=== PATIENT | female | born 1940 | race African-American/Black ===

== ENCOUNTER 2024-04-26 10:52 | Inpatient (IN) | payer MEDICARE ==
[~2024-04-26] VITALS: Ht 315 cm; Wt 78.0 kg
[2024-04-26] MEDS: ONDANSETRON HCL 4MG/2ML INJ IV STA (11:52)
[2024-04-26] MEDS: MORPHINE SULFATE 4 MG/ML INJ (FOR IV/IM USE) IV STA (11:53)
[2024-04-26 12:00] LABS: BASOPHILS % 0.5 % (0.0-2.0); EOSINOPHILS % 2.8 % (0.0-5.0); HEMATOCRIT. 31.7 % (36.0-48.0); HEMOGLOBIN. 9.8 g/dL (12.0-16.0); LYMPHOCYTES % 14.6 % (20.0-50.0); MEAN CORPUSCULAR HEMOGLOBIN 27.3 pg (28.0-32.0); MEAN CORPUSCULAR HGB CONC 30.8 g/dL (31.0-37.0); MEAN CORPUSCULAR VOLUME 88.6 fL (81.0-99.0); MEAN PLATELET VOLUME 9.2 fl (7.4-10.4); MONOCYTES % 6.3 % (2.0-8.0); NEUTROPHILS % 75.8 % (40.0-76.0); PLATELET 152 x1000/uL (130-400); RED BLOOD CELL COUNT 3.58 mill/uL (4.2-5.4); RED CELL DISTRIBUTION WIDTH 16.7 % (11.6-14.6); WHITE BLOOD COUNT 10.4 x1000/uL (4.5-11.0)
[2024-04-26 12:10] LABS: CHLORIDE 111 mEq/L (98-107); POTASSIUM 4.3 mEq/L (3.5-5.1); SODIUM 142 mEq/L (136-145)
[2024-04-26 12:11] LABS: CALCIUM 8.8 mg/dL (8.7-10.4); CARBON DIOXIDE 23 mEq/L (21-32)
[2024-04-26 12:16] LABS: CREATININE 0.8 mg/dL (0.6-1.0); GLUCOSE 190 mg/dL (70-105); UREA NITROGEN BLOOD 24 mg/dL (9-23)
[2024-04-26 12:18] LABS: ALANINE AMINOTRANSFERASE 24 IU/L (10-49); ALBUMIN 3.4 g/dL (3.2-4.8); ASPARTATE AMINOTRANSFERASE 26 IU/L (<34); BILIRUBIN TOTAL 0.3 mg/dL (0.1-1.0); PROTEIN TOTAL 6.2 g/dL (6.0-8.3); TROPONIN I HIGH SENSITIVITY 6 ng/L (3.0-34)
[2024-04-26 12:23] LABS: PROTHROMBIN TIME 11.1 sec (9.6-11.0)
[2024-04-26 12:43] LABS: BILIRUBIN DIRECT < 0.1 mg/dL (<=3.0)
[2024-04-26 15:20] LABS: CLARITY URINE CLOUDY (CLEAR); COLOR URINE ORANGE (YELLOW); GLUCOSE URINE NEGATIVE (NEGATIVE); KETONES URINE NEGATIVE (NEGATIVE); LEUKOCYTE ESTERASE URINE TRACE (NEGATIVE); NITRITE URINE NEGATIVE (NEGATIVE); OCCULT BLOOD URINE 3+ (NEGATIVE); PROTEIN URINE 1+ (NEGATIVE); UROBILINOGEN URINE 0.2 E.U./dL (0.2-1.0)
[2024-04-26] MEDS: IOHEXOL-300 100 ML BOTTLE ONE (15:25)
[2024-04-26 16:00] VITALS: BP 84/55; PULSE 81; RESP 20; TEMP 36.6; O2SAT 80
[2024-04-26 16:13] LABS: BACTERIA URINE 1+; SQUAMOUS EPITHELIAL CELL URINE 2+ /lpf (RARE/1+); WBC URINE 0-2 /hpf (0-2)
[2024-04-26] MEDS ORDERED: ONDANSETRON HCL 4MG/2ML INJ IV PRN (17:30)
[2024-04-26 18:03] LABS: HEMATOCRIT 27.6 % (36.0-48.0); HEMOGLOBIN 8.6 g/dL (12.0-16.0)
[2024-04-26] MEDS: DEXT 5%/0.9% NACL 1,000 ML IV SCH (18:24)
[2024-04-26] MEDS ORDERED: PANTOPRAZOLE 80 MG in SODIUM CHLORIDE 0.9% 100 ML IV SCH (18:30)
[2024-04-26 19:28] LABS: TROPONIN I HIGH SENSITIVITY 8 ng/L (3.0-34)
[2024-04-26 20:00] VITALS: BP 85/60; PULSE 76; RESP 14; TEMP 36.4; O2SAT 96
[2024-04-27] VITALS (17 sets, daily range): BP systolic 88–126; BP diastolic 47–63; PULSE 75–103; RESP 16–18; TEMP 35.7–36.9; O2SAT 97–99
[2024-04-27 03:33] LABS: HEMATOCRIT 20.5 % (36.0-48.0)
[2024-04-27 03:34] LABS: HEMOGLOBIN 6.5 g/dL (12.0-16.0)
[2024-04-27] MEDS ORDERED: CHOL100046 PO (10:11)
[2024-04-27] MEDS ORDERED: ACET-2708 PO (10:11)
[2024-04-27] MEDS ORDERED: METO-539 PO (10:11)
[2024-04-27] MEDS ORDERED: LEVO75TA7 PO (10:11)
[2024-04-27] MEDS ORDERED: LOSA50TA41 PO (10:11)
[2024-04-27] MEDS ORDERED: CYCL5TAB3 PO (10:11)
[2024-04-27] MEDS ORDERED: APIX5TAB PO (10:11)
[2024-04-27] MEDS ORDERED: FURO20TA4 PO (10:11)
[2024-04-27] MEDS: PANTOPRAZOLE SODIUM 40 MG/VIAL IV SCH (10:54)
[2024-04-27 12:58] LABS: BASOPHILS % 0.2 % (0.0-2.0); EOSINOPHILS % 1.4 % (0.0-5.0); HEMATOCRIT. 26.6 % (36.0-48.0); HEMOGLOBIN. 8.6 g/dL (12.0-16.0); LYMPHOCYTES % 23.5 % (20.0-50.0); MEAN CORPUSCULAR HEMOGLOBIN 28.1 pg (28.0-32.0); MEAN CORPUSCULAR HGB CONC 32.2 g/dL (31.0-37.0); MEAN CORPUSCULAR VOLUME 87.3 fL (81.0-99.0); MEAN PLATELET VOLUME 9.6 fl (7.4-10.4); MONOCYTES % 12.2 % (2.0-8.0); NEUTROPHILS % 62.7 % (40.0-76.0); PLATELET 107 x1000/uL (130-400); RED BLOOD CELL COUNT 3.05 mill/uL (4.2-5.4); RED CELL DISTRIBUTION WIDTH 15.6 % (11.6-14.6); WHITE BLOOD COUNT 6.5 x1000/uL (4.5-11.0)
[2024-04-27 13:10] LABS: CHLORIDE 113 mEq/L (98-107); SODIUM 144 mEq/L (136-145)
[2024-04-27 13:11] LABS: CALCIUM 8.5 mg/dL (8.7-10.4); CARBON DIOXIDE 23 mEq/L (21-32)
[2024-04-27 13:20] LABS: T4 FREE 1.22 ng/dL (0.89-1.76); THYROID STIMULATING HORMONE 1.55 uIU/mL (0.55-4.78)
[2024-04-27 13:38] LABS: CREATININE 0.7 mg/dL (0.6-1.0); GLUCOSE 120 mg/dL (70-105); UREA NITROGEN BLOOD 19 mg/dL (9-23)
[2024-04-27 13:40] LABS: ALANINE AMINOTRANSFERASE 18 IU/L (10-49); ALBUMIN 3.1 g/dL (3.2-4.8); ASPARTATE AMINOTRANSFERASE 20 IU/L (<34); BILIRUBIN DIRECT 0.3 mg/dL (<=3.0); BILIRUBIN TOTAL 0.9 mg/dL (0.1-1.0); PROTEIN TOTAL 5.3 g/dL (6.0-8.3)
[2024-04-27 16:06] LABS: HEMATOCRIT 26.8 % (36.0-48.0); HEMOGLOBIN 8.7 g/dL (12.0-16.0)
[2024-04-28] VITALS: BP 112/62; PULSE 101; RESP 18; TEMP 36.3; O2SAT 98
[2024-04-28 01:39] LABS: HEMATOCRIT 23.1 % (36.0-48.0); HEMOGLOBIN 7.7 g/dL (12.0-16.0)
[2024-04-28 04:00] VITALS: BP 123/63; PULSE 81; RESP 18; TEMP 36.4; O2SAT 100
[2024-04-28 06:11] LABS: HEMOGLOBIN 7.6 g/dL (12.0-16.0)
[2024-04-28 08:00] VITALS: BP 128/78; PULSE 79; RESP 18; TEMP 36.3; O2SAT 100
[2024-04-28] MEDS: METOPROLOL TARTRATE 50MG TABLET PO SCH (08:28)
[2024-04-28] MEDS ORDERED: METOPROLOL TARTRATE 50MG TABLET PO SCH (09:00)
[2024-04-28 12:00] VITALS: BP 134/75; PULSE 75; RESP 18; TEMP 36.4; O2SAT 100
[2024-04-28 13:02] LABS: HEMATOCRIT 24.9 % (36.0-48.0)
[2024-04-28 16:00] VITALS: BP 128/73; PULSE 85; RESP 18; TEMP 36.6; O2SAT 100
[2024-04-28 20:00] VITALS: BP 153/82; PULSE 89; RESP 17; TEMP 36.8; O2SAT 100
[2024-04-28 20:12] LABS: HEMOGLOBIN 7.8 g/dL (12.0-16.0)
[2024-04-28 21:35] LABS: IRON 38 ug/dL (50-170)
[2024-04-28 21:38] LABS: TOTAL IRON BINDING CAPACITY 253 ug/dl (250-425)
[2024-04-28 21:41] LABS: FERRITIN 47 ng/mL (10-291); FOLIC ACID (FOLATE) SERUM > 20.00 ng/mL (>5.38)
[2024-04-28 21:42] LABS: VITAMIN B12 SERUM 546 pg/mL (211-911)
[2024-04-29] VITALS: BP 126/72; PULSE 72; RESP 18; TEMP 36.6; O2SAT 100
[2024-04-29 04:00] VITALS: BP 107/64; PULSE 75; RESP 16; TEMP 37.4; O2SAT 100
[2024-04-29 07:02] LABS: CHLORIDE 112 mEq/L (98-107); POTASSIUM 3.5 mEq/L (3.5-5.1); SODIUM 146 mEq/L (136-145)
[2024-04-29 07:03] LABS: CALCIUM 8.7 mg/dL (8.7-10.4); CARBON DIOXIDE 26 mEq/L (21-32)
[2024-04-29 07:08] LABS: CREATININE 0.6 mg/dL (0.6-1.0); GLUCOSE 127 mg/dL (70-105); UREA NITROGEN BLOOD 7 mg/dL (9-23)
[2024-04-29 07:51] LABS: BASOPHILS % 0.3 % (0.0-2.0); EOSINOPHILS % 6.6 % (0.0-5.0); HEMATOCRIT. 23.7 % (36.0-48.0); HEMOGLOBIN. 7.7 g/dL (12.0-16.0); LYMPHOCYTES % 22.8 % (20.0-50.0); MEAN CORPUSCULAR HEMOGLOBIN 28.6 pg (28.0-32.0); MEAN CORPUSCULAR HGB CONC 32.6 g/dL (31.0-37.0); MEAN CORPUSCULAR VOLUME 87.8 fL (81.0-99.0); MONOCYTES % 14.5 % (2.0-8.0); NEUTROPHILS % 55.8 % (40.0-76.0); PLATELET 106 x1000/uL (130-400); RED CELL DISTRIBUTION WIDTH 16.1 % (11.6-14.6); WHITE BLOOD COUNT 5.8 x1000/uL (4.5-11.0)
[2024-04-29 08:00] VITALS: BP 154/74; PULSE 90; RESP 18; TEMP 36.8; O2SAT 100
[2024-04-29] MEDS ORDERED: NON FORMULARY MED XX SCH (11:00)
[2024-04-29 12:00] VITALS: BP 137/71; PULSE 75; RESP 18; TEMP 36.6; O2SAT 100
[2024-04-29] MEDS: IRON SUCROSE COMPLEX 100 MG/5 ML ML IV NR (12:23)
[2024-04-29 16:00] VITALS: BP 137/80; PULSE 84; RESP 19; TEMP 36.7; O2SAT 100
[2024-04-29 20:00] VITALS: BP 146/83; PULSE 99; RESP 18; TEMP 36.1; O2SAT 100
[2024-04-30] VITALS (25 sets, daily range): BP systolic 105–140; BP diastolic 49–86; PULSE 79–111; RESP 16–27; TEMP 36.2–37.3; O2SAT 95–100
[2024-04-30 03:52] LABS: BASOPHILS % 0.2 % (0.0-2.0); DIFFERENTIAL COMMENT 0; EOSINOPHILS % 1.4 % (0.0-5.0); LYMPHOCYTES % 11.6 % (20.0-50.0); MEAN CORPUSCULAR HEMOGLOBIN 28.6 pg (28.0-32.0); MEAN CORPUSCULAR HGB CONC 32.7 g/dL (31.0-37.0); MEAN CORPUSCULAR VOLUME 87.5 fL (81.0-99.0); MEAN PLATELET VOLUME 8.6 fl (7.4-10.4); MONOCYTES % 11.8 % (2.0-8.0); PLATELET 109 x1000/uL (130-400); RED BLOOD CELL COUNT 2.35 mill/uL (4.2-5.4); RED CELL DISTRIBUTION WIDTH 15.4 % (11.6-14.6); WHITE BLOOD COUNT 9.7 x1000/uL (4.5-11.0)
[2024-04-30 04:13] LABS: CHLORIDE 111 mEq/L (98-107); POTASSIUM 3.6 mEq/L (3.5-5.1); SODIUM 143 mEq/L (136-145)
[2024-04-30 04:14] LABS: CARBON DIOXIDE 24 mEq/L (21-32); HEMATOCRIT. 20.5 % (36.0-48.0); HEMOGLOBIN. 6.7 g/dL (12.0-16.0)
[2024-04-30 04:19] LABS: CREATININE 0.7 mg/dL (0.6-1.0); GLUCOSE 193 mg/dL (70-105)
[2024-04-30 04:20] LABS: UREA NITROGEN BLOOD 11 mg/dL (9-23)
[2024-04-30] MEDS: ACETAMINOPHEN 325MG TABLET PO PRN (06:00)
[2024-04-30] MEDS: LEVOTHYROXINE SODIUM 75MCG TABLET PO SCH (09:16)
[2024-04-30 18:54] LABS: HEMATOCRIT 26.5 % (36.0-48.0); HEMOGLOBIN 8.8 g/dL (12.0-16.0)
[2024-05-01] VITALS (12 sets, daily range): BP systolic 87–126; BP diastolic 55–84; PULSE 70–103; RESP 16–21; TEMP 36.4–36.8; O2SAT 98–100
[2024-05-01 07:38] LABS: HEMATOCRIT. 27.4 % (36.0-48.0); MEAN CORPUSCULAR HEMOGLOBIN 28.5 pg (28.0-32.0); MEAN CORPUSCULAR HGB CONC 32.8 g/dL (31.0-37.0); MEAN CORPUSCULAR VOLUME 86.9 fL (81.0-99.0); PLATELET 124 x1000/uL (130-400); RED BLOOD CELL COUNT 3.15 mill/uL (4.2-5.4); RED CELL DISTRIBUTION WIDTH 16.4 % (11.6-14.6); WHITE BLOOD COUNT 9.3 x1000/uL (4.5-11.0)
[2024-05-01 07:48] LABS: CARBON DIOXIDE 24 mEq/L (21-32); CHLORIDE 107 mEq/L (98-107); POTASSIUM 3.5 mEq/L (3.5-5.1); SODIUM 141 mEq/L (136-145)
[2024-05-01 07:49] LABS: CALCIUM 8.7 mg/dL (8.7-10.4)
[2024-05-01 07:53] LABS: CREATININE 0.6 mg/dL (0.6-1.0); GLUCOSE 134 mg/dL (70-105)
[2024-05-01 07:54] LABS: UREA NITROGEN BLOOD 7 mg/dL (9-23)
[2024-05-01 07:56] LABS: PHOSPHORUS 2.3 mg/dL (2.5-4.9)
[2024-05-01 08:32] LABS: DIFFERENTIAL COMMENT 1
[2024-05-01 15:22] LABS: NUCLEATED RED BLOOD CELLS 2 /100 WBC
[2024-05-01 15:23] LABS: OVALOCYTES FEW; PLATELET ESTIMATE NORMAL
[2024-05-02] VITALS (12 sets, daily range): BP systolic 109–153; BP diastolic 58–95; PULSE 69–112; RESP 15–30; TEMP 36.3–37.3; O2SAT 98–100
[2024-05-02 06:18] LABS: CARBON DIOXIDE 24 mEq/L (21-32); CHLORIDE 109 mEq/L (98-107); POTASSIUM 3.4 mEq/L (3.5-5.1); SODIUM 141 mEq/L (136-145)
[2024-05-02 06:19] LABS: CALCIUM 8.7 mg/dL (8.7-10.4)
[2024-05-02 06:24] LABS: CREATININE 0.6 mg/dL (0.6-1.0); GLUCOSE 150 mg/dL (70-105); UREA NITROGEN BLOOD 6 mg/dL (9-23)
[2024-05-02 06:34] LABS: BASOPHILS % 0.2 % (0.0-2.0); HEMATOCRIT. 24.9 % (36.0-48.0); HEMOGLOBIN. 8.2 g/dL (12.0-16.0); LYMPHOCYTES % 12.9 % (20.0-50.0); MEAN CORPUSCULAR HEMOGLOBIN 28.8 pg (28.0-32.0); MEAN CORPUSCULAR VOLUME 87.2 fL (81.0-99.0); MONOCYTES % 13.6 % (2.0-8.0); NEUTROPHILS % 70.3 % (40.0-76.0); PLATELET 129 x1000/uL (130-400); RED BLOOD CELL COUNT 2.86 mill/uL (4.2-5.4); RED CELL DISTRIBUTION WIDTH 16.8 % (11.6-14.6); WHITE BLOOD COUNT 8.4 x1000/uL (4.5-11.0)
[2024-05-02] MEDS: POTASSIUM CHLORIDE 20MEQ/PACKET PO NR (06:39)
[2024-05-03] VITALS: BP 123/66; PULSE 81; RESP 18; TEMP 36.5; O2SAT 99
[2024-05-03 02:00] VITALS: BP 95/55; PULSE 69; RESP 15; O2SAT 97
[2024-05-03 04:00] VITALS: BP 120/78; PULSE 76; RESP 15; TEMP 36.7; O2SAT 99
[2024-05-03 06:00] VITALS: BP 133/80; PULSE 88; RESP 19; O2SAT 100
[2024-05-03 06:16] LABS: CHLORIDE 109 mEq/L (98-107); POTASSIUM 3.6 mEq/L (3.5-5.1); SODIUM 141 mEq/L (136-145)
[2024-05-03 06:17] LABS: CARBON DIOXIDE 24 mEq/L (21-32)
[2024-05-03 06:18] LABS: CALCIUM 8.6 mg/dL (8.7-10.4)
[2024-05-03 06:22] LABS: CREATININE 0.6 mg/dL (0.6-1.0); GLUCOSE 150 mg/dL (70-105)
[2024-05-03 06:31] LABS: BASOPHILS % 0.3 % (0.0-2.0); EOSINOPHILS % 3.3 % (0.0-5.0); HEMATOCRIT. 25.9 % (36.0-48.0); HEMOGLOBIN. 8.5 g/dL (12.0-16.0); LYMPHOCYTES % 12.7 % (20.0-50.0); MEAN CORPUSCULAR HEMOGLOBIN 28.9 pg (28.0-32.0); MEAN CORPUSCULAR HGB CONC 32.8 g/dL (31.0-37.0); MEAN CORPUSCULAR VOLUME 88.1 fL (81.0-99.0); MONOCYTES % 12.1 % (2.0-8.0); NEUTROPHILS % 71.6 % (40.0-76.0); PLATELET 168 x1000/uL (130-400); RED BLOOD CELL COUNT 2.94 mill/uL (4.2-5.4); WHITE BLOOD COUNT 7.4 x1000/uL (4.5-11.0)
[2024-05-03 07:31] LABS: UREA NITROGEN BLOOD < 5 mg/dL (9-23)
[2024-05-03] MEDS ORDERED: PROT40 MT (10:43)
[2024-05-03 16:22] VITALS: BP 116/52; PULSE 79; TEMP 97.2; O2SAT 100
== END 2024-05-03 18:34 | disposition home or self-care (01) | DRG 378 ==
LOC: ER 10:52 → EDBEDREQ 12:58 → EDBEDREQTM 12:58 → 5WST 16:26 → 5EST 04-30 04:00
PROVIDERS: ADMIT Internal Medicine; ATTEND Internal Medicine
PROC: 30233N1 Transfusion of Nonautologous Red Blood Cells into Peripheral Vein, Percutaneous Approach (ICD-10-PCS; principal; 2024-04-27)
DX: K57.31 Diverticulosis of large intestine without perforation or abscess with bleeding (principal); D62 Acute posthemorrhagic anemia; I48.20 Chronic atrial fibrillation, unspecified; E03.9 Hypothyroidism, unspecified; I10 Essential (primary) hypertension; Z79.01 Long term (current) use of anticoagulants; Z79.899 Other long term (current) drug therapy
CPT/HCPCS: 36415; 74177; 80048; 80076; 81003; 82607; 82728; 82746; 83540; 83550; 83735; 84100; 84439; 84443; 84484; 85014; 85018; 85025; 85044; 86850; 86900; 86920; 93005; 93971; 99285; A4606; J2270; J2405; J2470; J7042; J7050; P9016; Q9967